=== PATIENT | female | born 1995 | race Caucasian/White ===

== ENCOUNTER 2018-04-22 14:19 | Observation (INO) | payer OTHER ==
[2018-04-22 14:54] LABS: HCG,QUALITATIVE URINE Negative
[2018-04-22 15:05] LABS: URINE APPEARANCE CLOUDY; URINE BILIRUBIN NEGATIVE (<2.0 mg/dL); URINE COLOR YELLOW; URINE GLUCOSE (UA) 2+ (NEGATIVE); URINE KETONE NEGATIVE (NEGATIVE); URINE LEUK ESTERASE TRACE (NEGATIVE); URINE NITRITE POSITIVE (NEGATIVE); URINE PROTEIN 2+ (NEGATIVE); URINE UROBILINOGEN NEGATIVE mg/dL (0.2-1.0)
[2018-04-22 15:16] LABS: CALCIUM OXALATE CRYSTALS RARE /hpf (NONE SEEN); EPI CELLS MANY /HPF (FEW); URINE BACTERIA MODERATE /hpf (NONE SEEN); URINE MUCUS MANY
[2018-04-22] MEDS ORDERED: KETOROLAC TROMETHAMINE 30 MG/1 ML VIAL IVPUSH ONE (15:22)
[2018-04-22] MEDS ORDERED: KETOROLAC TROMETHAMINE 30 MG/1 ML VIAL ONE (15:23)
--- NOTE | 2018-04-22 15:29 | PDOC ---
History of Present Illness - General History Source: Patient Exam Limitations: Clinical Condition - History of Present Illness Initial Comments: 04/22/18 15:24 Patient with no sig past medical history present with complain of three-day history of intermittent throbbing left flank pain radiating to the mid back which improves with Tylenol and comes back again. Patient reported pain lasted a few minutes and resolve. Patient also report urinary frequency and dysuria. Patient was seen in urgent care and was told she might have a kidney stone given her symptoms. Patient was given Toradol 60 mg IM in the urgent care and report pain has improved but still has mild left flank pain. Patient also report nausea but no vomiting. Denies fever, chills or any other symptoms Timing/Duration: other (3 days) <Jan Lawson - Last Filed: 04/22/18 18:41> <Bridgett Almaguer - Last Filed: 04/22/18 18:47> - General Chief Complaint: Pain, Acute Stated Complaint: PAIN Time Seen by Provider: 04/22/18 14:54 Past History - Past Medical History Asthma: Yes COPD: No Diabetes: Yes (supposed to be on metformin) - Suicide/Smoking/Psychosocial Hx Smoking Status: No Smoking History: Never smoked Number of Cigarettes Smoked Daily: 0 Substance Use Type: None <Jan Lawson - Last Filed: 04/22/18 18:41> <Bridgett Almaguer - Last Filed: 04/22/18 18:47> - Past Medical History Allergies/Adverse Reactions: Allergies Allergy/AdvReac Type Severity Reaction Status Date / Time No Known Allergies Allergy Verified 04/22/18 14:25 Home Medications: Ambulatory Orders NK [No Known Home Medication] 04/22/18 Review of Systems - Review of Systems Able to Perform ROS?: Yes Is the patient limited Malay proficient: No Constitutional: No: Chills, Fever Respiratory: No: Symptoms reported Cardiac (ROS): No: Symptoms Reported ABD/GI: Yes: See HPI, Nausea, Abdominal cramping (left flank). No: Abdominal Distended, Abd. Pain w/ defecation, Constipated, Diarrhea, Rectal Bleeding, Vomiting : Yes: Frequency, Flank Pain (intermittent left), Hematuria. No: Burning, Discharge, Urgency All Other Systems: Reviewed and Negative <Jan Lawson - Last Filed: 04/22/18 18:41> *Physical Exam - Vital Signs Last Vital Signs Temp Pulse Resp BP Pulse Ox 98.1 F 90 18 128/69 98 04/22/18 14:30 04/22/18 14:30 04/22/18 14:30 04/22/18 14:30 04/22/18 14:30 - Physical Exam Comments: 04/22/18 15:26 GENERAL: Well developed, well nourished. Awake and alert. No acute distress. CARDIOVASCULAR: Regular rate and rhythm. No murmurs, rubs, or gallops. Distal pulses are 2+ and symmetric. PULMONARY: No evidence of respiratory distress. Lungs clear to auscultation bilaterally. No wheezing, rales or rhonchi. ABDOMINAL: Soft. Non-tender. Non-distended. No rebound or guarding. No organomegaly. Normoactive bowel sounds. MUSCULOSKELETAL Normal range of motion at all joints. No bony deformities or tenderness. No CVA tenderness. SKIN: Warm and dry. Normal capillary refill. No rashes. No jaundice. NEUROLOGICAL: Alert, awake, appropriate. PSYCHIATRIC: Cooperative. Good eye contact. Appropriate mood and affect. General Appearance: Yes: Nourished, Appropriately Dressed. No: Apparent Distress <Jan Lawson - Last Filed: 04/22/18 18:41> - Vital Signs Last Vital Signs Temp Pulse Resp BP Pulse Ox 98.1 F 90 18 128/69 98 04/22/18 14:30 04/22/18 14:30 04/22/18 14:30 04/22/18 14:30 04/22/18 14:30 <Bridgett Almaguer - Last Filed: 04/22/18 18:47> ED Treatment Course - LABORATORY CBC & Chemistry Diagram: 04/22/18 15:05 04/22/18 15:05 - ADDITIONAL ORDERS Additional order review: Laboratory Results 04/22/18 14:38 Urine Color Yellow Urine Appearance Cloudy Urine pH 5.0 Ur Specific [place] 1.029 Urine Protein 2+ H Urine Glucose (UA) 2+ H Urine Ketones Negative Urine Blood 1+ H Urine Nitrite Positive Urine Bilirubin Negative Urine Urobilinogen Negative Ur Leukocyte Esterase Trace Urine WBC (Auto) 23 Urine RBC (Auto) 6 Ur Epithelial Cells Many Calcium Oxalate Crystal Rare Urine Bacteria Moderate Urine Mucus Many Urine HCG, Qual Negative - RADIOLOGY Radiology Studies Ordered: Category Date Time Status KIDNEY / RENAL US [US] Stat Ultrasound 04/22/18 15:16 Ordered <aJn Lawson - Last Filed: 04/22/18 18:41> - LABORATORY CBC & Chemistry Diagram: 04/22/18 15:05 04/22/18 15:05 - ADDITIONAL ORDERS Additional order review: Laboratory Results 04/22/18 14:38 Urine Color Yellow Urine Appearance Cloudy Urine pH 5.0 Ur Specific [place] 1.029 Urine Protein 2+ H Urine Glucose (UA) 2+ H Urine Ketones Negative Urine Blood 1+ H Urine Nitrite Positive Urine Bilirubin Negative Urine Urobilinogen Negative Ur Leukocyte Esterase Trace Urine WBC (Auto) 23 Urine RBC (Auto) 6 Ur Epithelial Cells Many Calcium Oxalate Crystal Rare Urine Bacteria Moderate Urine Mucus Many Urine HCG, Qual Negative - Medications Given in the ED: ED Medications Discontinued Medications Generic Name Dose Route Start Last Admin Trade Name Freq PRN Reason Stop Dose Admin Ketorolac Tromethamine 30 mg 04/22/18 15:22 04/22/18 15:29 Toradol Injection - IVPUSH 04/22/18 15:23 30 mg ONCE ONE Administration <Bridgett Almaguer - Last Filed: 04/22/18 18:47> Medical Decision Making - Medical Decision Making 04/22/18 15:27 Patient with no sig past medical history present with complain of intermittent left flank pain which comes and lasts for a few minutes for 3 days which has been worsening today. Exams show no flank pain now. UA shows leukocytosis and hematuria. Urine culture pending. CBC, CMP and kidney ultrasound ordered. Treat based on lab and imaging results 04/22/18 18:18 UA shows leukocytosis WBC shows elevated count of 13. pt afebrile. Keflex 500mg PO given. kidney Ultrasound shows left small non-obstructing renal stone with mild hydronephrosis. CT of bladder shows small non-obstructing 2mm calculus at UPJ. spoke to urologist Dr. Biswas who agrees patient to be admitted for at last 24hours IV Ibx. discussed with patient need for hospital admission for IV Abx and pt agrees with plan 04/22/18 18:41 Patient admitted to hospitalist service under Dr. Sharp <Jan Lawson - Last Filed: 04/22/18 18:41> - Medical Decision Making The patient was seen and evaluated in conjunction with midlevel provider under my direct supervision, ancillary studies were reviewed. I agree with the plan as outlined by BETHANIE Lawson 23 YOF with urinary sx and left flank pain. vitals wnl, no fever. UA with nitrites and s/s infection, treat with keflex, UTI vs pyelo. neg preg test. labs and lytes remarkable for leukocytosis of 13K. Cr and lytes normal. renal sono with left hydro CT kelsy to r/o exact location of obstruction and stone. +hydro noted, left 2cm UPJ stone noted. could also be infected stone already gotten dose of keflex. hydrated, analgesia urology cs with Dr. Sanabria admit for infected stone at UPJ, likely to pass also possible concurrent UTI. admit to hospitalist team 04/22/18 15:32 04/22/18 18:45 04/22/18 18:46 <Bridgett Almaguer - Last Filed: 04/22/18 18:47> *DC/Admit/Observation/Transfer - Discharge Dispostion Decision to Admit order: Yes Decision to Admit order Date/Time: 04/22/18 18:23 Patient with poorly controlled diabetes. WBC shows elevated white count. Pelvic ultrasound shows renal stone with mild hydronephrosis. Discussed case with urologist Dr. Sanabria who agrees patient to be admitted for IV antibiotics. Hospitalist contacted for admission. <Jan Lawson - Last Filed: 04/22/18 18:41> - Discharge Dispostion Decision to Admit order: Yes <Bridgett Almaguer - Last Filed: 04/22/18 18:47> Diagnosis at time of Disposition: Hydronephrosis of left kidney, Poorly controlled diabetes mellitus, Ureteropelvic junction calculus UTI (urinary tract infection) Qualifiers: Urinary tract infection type: acute cystitis Hematuria presence: with hematuria Qualified Code(s): N30.01 - Acute cystitis with hematuria - Discharge Dispostion Condition at time of disposition: Stable - Referrals Referrals: ON STAFF,NOT [Primary Care Provider] - - Patient Instructions - Post Discharge Activity
[2018-04-22] MEDS ORDERED: CEPHALEXIN MONOHYDRATE 500 MG CAPSULE (UD) PO ONE (15:33)
[2018-04-22 15:36] LABS: BASO % 0.2 % (0-2.0); EOS % 0.2 % (0-4.5); HEMATOCRIT 42.1 % (32.4-45.2); HEMOGLOBIN 14.4 GM/dL (10.7-15.3); MCH 29.1 pg (25.7-33.7); MCHC 34.2 g/dl (32.0-36.0); MONO % 4.1 % (3.8-10.2); NEUT % 85.5 % (42.8-82.8); PLATELET COUNT 311 K/MM3 (134-434); RBC 4.96 M/mm3 (3.60-5.2); RDW 12.9 % (11.6-15.6); WHITE BLOOD COUNT 13.1 K/mm3 (4.0-10.0)
[2018-04-22] MEDS ORDERED: CEPHALEXIN MONOHYDRATE 500 MG CAPSULE (UD) ONE (15:41)
[2018-04-22 16:06] LABS: ALK PHOS 112 U/L (45-117); ANION GAP 12 MMOL/L (8-16); BILIRUBIN,TOTAL 0.5 mg/dL (0.2-1); BLOOD UREA NITROGEN 10 mg/dL (7-18); CALCIUM 8.9 mg/dL (8.5-10.1); CHLORIDE 105 mmol/L (98-107); CO2 24 mmol/L (21-32); CREATININE 0.6 mg/dL (0.55-1.3); GLUCOSE,RANDOM 248 mg/dL (74-106); POTASSIUM 3.8 mmol/L (3.5-5.1); SGOT/AST 20 U/L (15-37); SGPT/ALT 53 U/L (13-61); SODIUM 140 mmol/L (136-145); TOT PROT 7.3 g/dl (6.4-8.2)
[2018-04-22] MEDS ORDERED: metFORMIN HCL 500 MG TABLET (FP) PO ONE (17:23)
[2018-04-22] MEDS ORDERED: metFORMIN HCL 500 MG TABLET (FP) ONE (17:50)
[2018-04-22] MEDS ORDERED: KETOROLAC TROMETHAMINE 15 MG/ML VIAL IVPUSH PRN (18:35)
[2018-04-22] MEDS: SODIUM CHLORIDE 1,000 ML IV SCH (18:50)
--- NOTE | 2018-04-22 20:18 | HP ---
CHIEF COMPLAINT: "kidney stone pain" PCP: none HISTORY OF PRESENT ILLNESS: Pt is a 23 y/o F with PMH DM (started as gestational) who presented to ED with complaint of 3 d L back pain radiating to the L side and front of abdomen. Pain has been intermittent and severe when present. Pt states she went to Urgent care where she had a urinalysis done, which revealed blood and a UTI. She was sent to ED. Denies pain at this time. Denies fever, chills, nausea, vomiting, diarrhea. ER course was notable for: (1) vitals stable, WBC 13, UA contaminated (2) renal u/s & abd CT reveal nonobstructing stone with hydro (3) Recent Travel: denies PAST MEDICAL HISTORY: as above PAST SURGICAL HISTORY: Social History: Smoking: denies Alcohol: denies Drugs: denies Family History: Allergies No Known Allergies Allergy (Verified 04/22/18 14:25) HOME MEDICATIONS: Home Medications Medication Instructions Recorded NK [No Known Home Medication] 04/22/18 REVIEW OF SYSTEMS CONSTITUTIONAL: Absent: fever, chills, diaphoresis, generalized weakness, malaise, loss of appetite, weight change HEENT: Absent: rhinorrhea, nasal congestion, throat pain, throat swelling, difficulty swallowing, mouth swelling, ear pain, eye pain, visual changes CARDIOVASCULAR: Absent: chest pain, syncope, palpitations, irregular heart rate, lightheadedness , peripheral edema RESPIRATORY: Absent: cough, shortness of breath, dyspnea with exertion, orthopnea, wheezing, stridor, hemoptysis GASTROINTESTINAL: abdominal pain Absent: , abdominal distension, nausea, vomiting, diarrhea, constipation, melena , hematochezia GENITOURINARY: Absent: dysuria, frequency, urgency, hesitancy, hematuria, flank pain, genital pain MUSCULOSKELETAL: Absent: myalgia, arthralgia, joint swelling, back pain, neck pain SKIN: Absent: rash, itching, pallor HEMATOLOGIC/IMMUNOLOGIC: Absent: easy bleeding, easy bruising, lymphadenopathy, frequent infections ENDOCRINE: Absent: unexplained weight gain, unexplained weight loss, heat intolerance, cold intolerance NEUROLOGIC: Absent: headache, focal weakness or paresthesias, dizziness, unsteady gait, seizure, mental status changes, bladder or bowel incontinence PSYCHIATRIC: Absent: anxiety, depression, suicidal or homicidal ideation, hallucinations. PHYSICAL EXAMINATION Vital Signs - 24 hr 04/22/18 04/22/18 04/22/18 14:30 19:15 19:34 Temperature 98.1 F Pulse Rate 90 Pulse Rate [ 86 Apical] Respiratory 18 18 Rate Blood Pressure 128/69 Blood Pressure 128/76 [Left Arm] O2 Sat by Pulse 98 98 98 Oximetry (%) Gen: nad HEENT: NCAT, EOMI Neck: supple, no jvd Cardio: rrr, normal s1s2, no mrg Pulm: cta b/l Abd: nondistended, nontender Laboratory Results - last 24 hr 04/22/18 04/22/18 04/22/18 14:38 15:05 15:05 WBC 13.1 H RBC 4.96 Hgb 14.4 Hct 42.1 MCV 85.0 MCH 29.1 MCHC 34.2 RDW 12.9 Plt Count 311 MPV 8.0 Absolute Neuts (auto) 11.2 H Neutrophils % 85.5 H Lymphocytes % 10.0 Monocytes % 4.1 Eosinophils % 0.2 Basophils % 0.2 Nucleated RBC % 0 Sodium 140 Potassium 3.8 Chloride 105 Carbon Dioxide 24 Anion Gap 12 BUN 10 Creatinine 0.6 Creat Clearance w eGFR > 60 Random Glucose 248 H Calcium 8.9 Total Bilirubin 0.5 AST 20 ALT 53 Alkaline Phosphatase 112 Total Protein 7.3 Albumin 4.0 Urine Color Yellow Urine Appearance Cloudy Urine pH 5.0 Ur Specific [place] 1.029 Urine Protein 2+ H Urine Glucose (UA) 2+ H Urine Ketones Negative Urine Blood 1+ H Urine Nitrite Positive Urine Bilirubin Negative Urine Urobilinogen Negative Ur Leukocyte Esterase Trace Urine WBC (Auto) 23 Urine RBC (Auto) 6 Ur Epithelial Cells Many Calcium Oxalate Crystal Rare Urine Bacteria Moderate Urine Mucus Many Urine HCG, Qual Negative ASSESSMENT/PLAN: Pt is a 23 y/o F with PMH gest DM, who presented to ED with abdominal pain from Urgent care where she was told she had a kidney stone. Pt found to have stone on imaging. #Renal stone -small amount of hydro -no pain at this time -PRN morphine -flomax 0.4 -NS @ 100 -Uro consulted and contacted by ED #DM -BGM ACHS -Hold metformin in case of possible imaging -ISS #FEN -NS -lytes wnl -DM diet #PPx -HSQ #Dispo -Obs Papa Tripp MD PGY-2 IM Visit type - Emergency Visit Emergency Visit: Yes ED Registration Date: 04/22/18 Care time: The patient presented to the Emergency Department on the above date and was hospitalized for further evaluation of their emergent condition. - New Patient This patient is new to me today: Yes Date on this admission: 04/23/18 - Critical Care Critical Care patient: No
[2018-04-22] MEDS: HEPARIN NA (PORCINE) 5,000 UNITS/ML 1ML VIAL SQ SCH (21:28)
[2018-04-22] MEDS: KETOROLAC TROMETHAMINE 15 MG/ML VIAL IVPUSH PRN (21:28)
[2018-04-22 23:28] VITALS: BMI 35.4
--- NOTE | 2018-04-23 01:58 | PN ---
Teaching Attending Note Name of Resident: Papa Tripp ATTENDING PHYSICIAN STATEMENT I saw and evaluated the patient. I reviewed the resident's note and discussed the case with the resident. I agree with the resident's findings and plan as documented. SUBJECTIVE: OBJECTIVE: ASSESSMENT AND PLAN: 23 y/o F with PMH gest DM, for a non-obstructive kidney stone #Renal stone -small amount of hydro -PRN morphine -tamsulosin 0.4mg -NS @ 100 f/u urology #DM -BGM ACHS -Hold metformin in case of possible imaging -ISS
[2018-04-23 04:13] LABS: URINE APPEARANCE CLEAR; URINE BILIRUBIN NEGATIVE (<2.0 mg/dL); URINE COLOR LTYELLOW; URINE GLUCOSE (UA) 3+ (NEGATIVE); URINE KETONE NEGATIVE (NEGATIVE); URINE LEUK ESTERASE NEGATIVE (NEGATIVE); URINE NITRITE NEGATIVE (NEGATIVE); URINE PROTEIN NEGATIVE (NEGATIVE); URINE UROBILINOGEN NEGATIVE mg/dL (0.2-1.0)
[2018-04-23] MEDS: HEPARIN NA (PORCINE) 5,000 UNITS/ML 1ML VIAL SQ SCH ×3 (06:16→21:00)
[2018-04-23] MEDS: SODIUM CHLORIDE 1,000 ML IV SCH ×2 (06:16→17:51)
[2018-04-23] MEDS: INSULIN SLIDING SCALE (NOVOLOG) 1 VIAL SQ SCH ×3 (06:50→17:50)
[2018-04-23 07:55] LABS: BASO % 0.3 % (0-2.0); EOS % 1.2 % (0-4.5); HEMATOCRIT 39.1 % (32.4-45.2); HEMOGLOBIN 13.6 GM/dL (10.7-15.3); LYMPH % 25.1 % (8-40); MCH 29.7 pg (25.7-33.7); MCHC 34.8 g/dl (32.0-36.0); MEAN CELL VOLUME 85.2 fl (80-96); MEAN PLT VOLUME 8.1 fl (7.5-11.1); MONO % 4.8 % (3.8-10.2); NEUT % 68.6 % (42.8-82.8); PLATELET COUNT 307 K/MM3 (134-434); RBC 4.58 M/mm3 (3.60-5.2); RDW 13.3 % (11.6-15.6); WHITE BLOOD COUNT 9.6 K/mm3 (4.0-10.0)
[2018-04-23 08:36] LABS: ANION GAP 8 MMOL/L (8-16); BLOOD UREA NITROGEN 13 mg/dL (7-18); CALCIUM 8.8 mg/dL (8.5-10.1); CHLORIDE 107 mmol/L (98-107); CO2 23 mmol/L (21-32); CREATININE 0.3 mg/dL (0.55-1.3); GLUCOSE,RANDOM 234 mg/dL (74-106); POTASSIUM 3.6 mmol/L (3.5-5.1); SODIUM 139 mmol/L (136-145)
[2018-04-23] MEDS: KETOROLAC TROMETHAMINE 15 MG/ML VIAL IVPUSH PRN (10:01)
--- NOTE | 2018-04-23 15:12 | PN ---
Progress Note (short form) - Note Progress Note: Subjective: received toradole earlier. no fever or chills . pain is better and resolved . no hematuria. denies dyuria. denies being on any meds for Dm and has poor f/u with PCP Objective: Vital Signs: Last Vital Signs Temp Pulse Resp BP Pulse Ox 98.4 F 84 20 126/69 98 04/23/18 13:15 04/23/18 13:15 04/23/18 13:15 04/23/18 13:15 04/23/18 11:00 Laboratory Results - last 24 hr 04/22/18 04/23/18 04/23/18 21:01 03:55 06:15 WBC RBC Hgb Hct MCV MCH MCHC RDW Plt Count MPV Absolute Neuts (auto) Neutrophils % Lymphocytes % Monocytes % Eosinophils % Basophils % Nucleated RBC % Sodium Potassium Chloride Carbon Dioxide Anion Gap BUN Creatinine Creat Clearance w eGFR POC Glucometer 190 215 Random Glucose Calcium Urine Color Ltyellow Urine Appearance Clear Urine pH 6.0 Ur Specific [place] 1.022 Urine Protein Negative Urine Glucose (UA) 3+ H Urine Ketones Negative Urine Blood Negative Urine Nitrite Negative Urine Bilirubin Negative Urine Urobilinogen Negative Ur Leukocyte Esterase Negative 04/23/18 04/23/18 04/23/18 07:00 07:00 11:49 WBC 9.6 RBC 4.58 Hgb 13.6 Hct 39.1 MCV 85.2 MCH 29.7 MCHC 34.8 RDW 13.3 Plt Count 307 MPV 8.1 Absolute Neuts (auto) 6.6 Neutrophils % 68.6 Lymphocytes % 25.1 D Monocytes % 4.8 Eosinophils % 1.2 D Basophils % 0.3 Nucleated RBC % 0 Sodium 139 Potassium 3.6 Chloride 107 Carbon Dioxide 23 Anion Gap 8 BUN 13 Creatinine 0.3 L Creat Clearance w eGFR > 60 POC Glucometer 211 Random Glucose 234 H Calcium 8.8 Urine Color Urine Appearance Urine pH Ur Specific [place] Urine Protein Urine Glucose (UA) Urine Ketones Urine Blood Urine Nitrite Urine Bilirubin Urine Urobilinogen Ur Leukocyte Esterase Physical Exam: NAD CV: RRR Lungs: CTAB Abd: soft, NT, ND, NLBS , obese . mild L CVA tenderness ext: no edema Assessment/Plan: 23 y/o lady with h/o Dm , and non compliant with PMD who presented with L sided flank pain and was found to have partially obstructing L sided stone with hydro 1- L sided partially obstructing nephrolithiasis and mild hydro: Ct reviewed - IVF - toradol - strain all urine - uro eval pending - no evidence of UTI. no need for Abx 2- H/o Dm : self stopped metformin few months ago. - ssi - f/u as out pt - educated about DM complications 3- L hepatic lobe structure on CT scan. f/u as out pt with triphase CT or MRI Visit type - Emergency Visit Emergency Visit: Yes ED Registration Date: 04/22/18 Care time: The patient presented to the Emergency Department on the above date and was hospitalized for further evaluation of their emergent condition. - New Patient This patient is new to me today: No - Critical Care Critical Care patient: No
--- NOTE | 2018-04-23 17:58 | CON.GU ---
Consult - History of Present Illness History of Present Illness: 23 yo female with left renal colic secondary to a 2mm Left UPJ stone - Past Medical History ...: No - Smoking History Smoking history: Never smoked Aproximately how many cigarettes per day: 0 Home Medications - Allergies Allergies/Adverse Reactions: Allergies Allergy/AdvReac Type Severity Reaction Status Date / Time No Known Allergies Allergy Verified 04/22/18 14:25 - Home Medications Home Medications: Ambulatory Orders NK [No Known Home Medication] 04/22/18 Review of Systems - Review of Systems Genitourinary: reports: Flank Pain Physical Exam- Vital Signs: Vital Signs Temperature 98.7 F 04/23/18 17:14 Pulse Rate 82 04/23/18 17:14 Respiratory Rate 18 04/23/18 17:14 Blood Pressure 124/83 04/23/18 17:14 O2 Sat by Pulse Oximetry (%) 98 04/23/18 11:00 Renal/: Yes: WNL Labs: CBC, BMP 04/23/18 07:00 04/23/18 07:00 Imaging - Results Cat Scan: Report Reviewed Problem List - Problems (1) Ureteropelvic junction calculus Assessment/Plan: in light of small stone size recommend conservative management with IVF hydration, antibiotics, await urine culture Code(s): N20.0 - CALCULUS OF KIDNEY
[2018-04-23] MEDS ORDERED: INSULIN (NOVOLOG) ASPART 100 UNITS/ML 10ML VIAL ONE (18:17)
[2018-04-23] MEDS ORDERED: ACETAMINOPHEN 325 MG TABLET (FP) PO ONE (22:33)
[2018-04-24] MEDS: SODIUM CHLORIDE 1,000 ML IV SCH ×2 (02:37→13:00)
[2018-04-24] MEDS: INSULIN SLIDING SCALE (NOVOLOG) 1 VIAL SQ SCH ×3 (06:09→16:17)
[2018-04-24] MEDS: HEPARIN NA (PORCINE) 5,000 UNITS/ML 1ML VIAL SQ SCH ×2 (06:09→15:31)
[2018-04-24] MEDS ORDERED: cefTRIAXone SODIUM 1 GM VIAL ONE (08:30)
[2018-04-24] MEDS ORDERED: DEXTROSE 5%-WATER - 50 ML IVPB ONE (08:30)
[2018-04-24 09:31] LABS: ANION GAP 6 MMOL/L (8-16); BLOOD UREA NITROGEN 8 mg/dL (7-18); CALCIUM 8.6 mg/dL (8.5-10.1); CHLORIDE 105 mmol/L (98-107); CO2 27 mmol/L (21-32); CREATININE 0.4 mg/dL (0.55-1.3); GLUCOSE,RANDOM 253 mg/dL (74-106); SODIUM 138 mmol/L (136-145)
[2018-04-24] MEDS ORDERED: CEFTRIAXONE 1 GM in DEXTROSE 5%-WATER - 50 ML IVPB SCH (10:00)
--- NOTE | 2018-04-24 11:57 | EKG ---
Test Reason : Blood Pressure : / mmHG Vent. Rate : 073 BPM Atrial Rate : 073 BPM P-R Int : 134 ms QRS Dur : 082 ms QT Int : 370 ms P-R-T Axes : 024 043 028 degrees QTc Int : 407 ms NORMAL SINUS RHYTHM WITH SINUS ARRHYTHMIA NORMAL ECG NO PREVIOUS ECGS AVAILABLE Confirmed by PRABHJOT DOMÍNGUEZ MD ([id number]) on 04/24/2018 11:56:39 AM Referred By: MERVIN PHAM Confirmed By:PRABHJOT DOMÍNGUEZ MD
[2018-04-24 13:26] VITALS: BP 109/59; PULSE 88; TEMP 98.1
--- NOTE | 2018-04-24 15:59 | PN ---
Teaching Attending Note Name of Resident: Kris Payne ATTENDING PHYSICIAN STATEMENT I saw and evaluated the patient. I reviewed the resident's note and discussed the case with the resident. I agree with the resident's findings and plan as documented. SUBJECTIVE: No fever or chills. no abd pain, no hematuria . feels much better . OBJECTIVE: NAD CV: RRR Lungs: CTAB Abd: soft, NT, ND, NLBS , obese . No CVA tenderness ext: no edema Assessment/Plan: 23 y/o lady with h/o Dm , and non compliant with PMD who presented with L sided flank pain and was found to have partially obstructing L sided stone with hydro 1- L sided partially obstructing nephrolithiasis and mild hydro: pain resolved . Urine cx with low colony count. No UTI no stone seen with straining the urine. dc IVF. f/u with urology as out pt patient instructed verbally to stain all her urine at home 2- H/o Dm : self stopped metformin few months ago. - educated. started on metformin, and asked to check blood sugar 3- L hepatic lobe structure on CT scan. f/u as out pt with triphase CT or MRI dc home
--- NOTE | 2018-04-24 18:31 | DS ---
Physical Exam: SUBJECTIVE: Patient seen and examined. No acute events overnight. Pt. denies fever, abdominal pain, dysuria or hematuria. OBJECTIVE: Vital Signs Period Temp Pulse Resp BP Sys/Chaudhari Pulse Ox Last 24 Hr 98.0 F-98.9 F 67-88 18-20 105-129/58-76 98-98 PHYSICAL EXAM GENERAL: The patient is awake, alert, and fully oriented, in no acute distress. EYES: sclera anicteric, conjunctiva clear. ENT: Ears normal, nares patent, moist mucous membranes. LUNGS: Breath sounds equal, clear to auscultation bilaterally, no wheezes, no crackles, no accessory muscle use. No CVA tenderness. HEART: Regular rate and rhythm, S1, S2 without murmur ABDOMEN: Soft, nontender, nondistended, normoactive bowel sounds, no guarding, no rebound EXTREMITIES: 2+ pulses, warm, well-perfused, no edema. NEUROLOGICAL: Normal speech, gait not observed. PSYCH: Normal mood, normal affect. SKIN: Warm, dry, normal turgor LABS Laboratory Results - last 24 hr 04/23/18 04/24/18 04/24/18 20:57 06:08 08:45 Sodium 138 Potassium 4.0 Chloride 105 Carbon Dioxide 27 Anion Gap 6 L BUN 8 Creatinine 0.4 L Creat Clearance w eGFR > 60 POC Glucometer 214 231 Random Glucose 253 H Calcium 8.6 TSH 1.25 04/24/18 12:31 Sodium Potassium Chloride Carbon Dioxide Anion Gap BUN Creatinine Creat Clearance w eGFR POC Glucometer 190 Random Glucose Calcium TSH HOSPITAL COURSE: Date of Admission:04/22/18 Date of Discharge: 04/24/18 Pt. admitted for flank pain 2/2 to UTI with non-obstructing hydronephrosis found on CT scan. Pt. treated with IVF and pain management. Abx. not indicated. Urology consult appreciated. Pt. found to have uncontrolled diabetes. Pt. referred to to clinic, restarted on Metformin, and prescribed glucometer as mentioned below. Hospital course discussed and agreed upon with Pt. and hospital staff. Minutes to complete discharge: 32 Discharge Summary Reason For Visit: URINARY TRACT INFECTION, POORLY CONTROLLED Condition: Improved - Instructions Diet, Activity, Other Instructions: You were admitted for abdominal pain. You were found to have a small stone in your ureter causing the pain and some dilation in your L kidney . You were found to have an elevated blood sugar, consistent with diabetes. We have started you on Metformin 1,000mg extended release once daily Please take 1 pill every day at the same time. We have prescribed a Glucometer (machine that measures blood sugar). Please measure your blood sugar every day before meals. Once in the Morning. once at noon and once at night. Please record your blood sugars and bring them to your Primary Care Physician to see if your medication needs to be adjusted. Please follow up with your Primary Care Physician within 1 week for your Diabetes management. If you do not have a Primary Care Physician please make an appointment with [facility] [phone] Please follow up with urologist Dr Biswas in 2 weeks if you develop sever pain or noticed any blood in urine Please follow up with cardiology as out patient for the palpitation . you might need a prolonged cardiac monitoring Please take your medications as prescribed to prevent foot amputation, kidney failure, progressive heart disease and early . Please return to the ER if you experience increase fever, chills, abdominal pain , decreased urination, pain on urination or increased frequency of urination. you have a liver nodule. please follow with your doctor fro repeat imaging and work up for this lesion . loose weight please Referrals: Haley Singh MD [Staff Physician] - 2 Weeks Jose A Biswas MD [Staff Physician] - 2 Weeks ON STAFF,NOT [Primary Care Provider] - 1 Week Disposition: HOME - Home Medications Comprehensive Discharge Medication List: Ambulatory Orders Acetaminophen [Tylenol .Extra-Strength -] 1,000 mg PO Q8H #100 tablet 02/01/15 Vit No.130/Iron/Folic [ Tablet] 1 each PO DAILY 02/01/15 Metformin HCl [Metformin HCl ER] 1,000 mg PO DAILY #30 tab.er.24 04/24/18 Miscellaneous Medical Supply [Glucometer Device] 1 each TP ASDIR #1 kit Miscellaneous Medical Supply [Glucometer Test Strips #100] 1 each TP ASDIR #1 box 04/24/18 This patient is new to me today: Yes Date on this admission: 04/24/18 Emergency Visit: Yes ED Registration Date: 04/22/18 Care time: The patient presented to the Emergency Department on the above date and was hospitalized for further evaluation of their emergent condition. Critical Care patient: No - Discharge Referral Referred to [facility] No
== END 2018-04-24 16:18 | disposition home or self-care (01) ==
LOC: JER 14:19 → JERBED 18:25 → J7W 20:41
PROVIDERS: ADMIT Internal Medicine; ATTEND Internal Medicine
PROC: 3E03329 Introduction of Other Anti-infective into Peripheral Vein, Percutaneous Approach (ICD-10-PCS; principal; 2018-04-22)
PROC: 3E0333Z Introduction of Anti-inflammatory into Peripheral Vein, Percutaneous Approach (ICD-10-PCS; 2018-04-22)
PROC: 3E0337Z Introduction of Electrolytic and Water Balance Substance into Peripheral Vein, Percutaneous Approach (ICD-10-PCS; 2018-04-22)
PROC: 3E013VG Introduction of Insulin into Subcutaneous Tissue, Percutaneous Approach (ICD-10-PCS; 2018-04-22)
DX: N13.2 Hydronephrosis with renal and ureteral calculous obstruction (principal); E11.65 Type 2 diabetes mellitus with hyperglycemia; N30.01 Acute cystitis with hematuria; Z79.84 Long term (current) use of oral hypoglycemic drugs
CPT/HCPCS: 36415; 74176; 76775-TC; 80048; 80053; 81003; 81015; 82962; 84443; 84703; 85025; 87086; 93005; 93010; 96372; 96374; 96375; 96376; 99284-25; G0378; J1644; J7030

== ENCOUNTER 2018-06-28 21:35 | Emergency (ER) | payer OTHER ==
[2018-06-28] MEDS ORDERED: SODIUM CHLORIDE 1,000 ML IV STA (21:40)
--- NOTE | 2018-06-28 21:40 | PDOC ---
Rapid Medical Evaluation Time Seen by Provider: 06/28/18 21:36 Medical Evaluation: Allergies Allergy/AdvReac Type Severity Reaction Status Date / Time No Known Allergies Allergy Verified 04/22/18 14:25 06/28/18 21:38 I have performed a brief in-person evaluation of this patient. The patient presents with a chief complaint of: r pelvic pain which has now moved to umbilicus. also with black stools Pertinent physical exam findings: No CVAT. RLQ tenderness. I have ordered the following: labs, urine, CTAB The patient will proceed to the ED for further evaluation. Discharge Disposition - Diagnosis Abdominal pain - Referrals - Patient Instructions - Post Discharge Activity
[2018-06-28 21:51] VITALS: BMI 37.3
--- NOTE | 2018-06-28 22:45 | PDOC ---
History of Present Illness - General Chief Complaint: Pain, Acute Stated Complaint: PAIN, ACUTE Time Seen by Provider: 06/28/18 21:36 - History of Present Illness Initial Comments: 23yo F with PMH of diabetes (non-adherent with metformin) and HELLP syndrome presenting with abdominal pain. Patient states the pain felt similar to when had a kidney stone on her left side, but now the pain presents on the right. The patient describes feeling a pinching sensation in her inguinal area which she has had before and attributes to her IUD. Thereafter, she felt a sharp pain in her periumbilical area and RLQ that lasted for about twenty minutes. No nausea or vomiting. She reports that her last bowel movement was nonbloody, but was black. Patient endorses a normal appetite. History of two c-sections. Reports normal appetite today. No fevers, chills, chest pain, or shortness of breath. Past History - Past Medical History Allergies/Adverse Reactions: Allergies Allergy/AdvReac Type Severity Reaction Status Date / Time No Known Allergies Allergy Verified 06/28/18 21:50 Home Medications: Ambulatory Orders NK [No Known Home Medication] 06/28/18 Asthma: Yes COPD: No Diabetes: Yes (supposed to be on metformin) Kidney Stones: Yes - Family Disease History Family Disease History: Diabetes: Mother - Reproductive History (#): 1 Para: 0 - Suicide/Smoking/Psychosocial Hx Smoking Status: No Smoking History: Never smoked Have you smoked in the past 12 months: No Number of Cigarettes Smoked Daily: 0 Information on smoking cessation initiated: No Hx Alcohol Use: No Drug/Substance Use Hx: No Substance Use Type: None Review of Systems - Review of Systems Comments:: Constitutional: no fever, no chills HEENT: no throat pain, no dysphagia Cardiovascular: no chest pain, no palpitations Respiratory: no cough, no shortness of breath Gastrointestinal: +abdominal pain, no nausea, no vomiting Genitourinary: no dysuria, no frequency Musculoskeletal: no myalgia, no arthralgia Skin: no rash, no itching Neurologic: no headache, no dizziness *Physical Exam - Vital Signs Last Vital Signs Temp Pulse Resp BP Pulse Ox 98.6 F 111 H 16 136/82 100 06/28/18 21:46 06/28/18 21:46 06/28/18 21:46 06/28/18 21:46 06/28/18 21:46 - Physical Exam Comments: General: Awake, alert, and fully oriented, in no acute distress Head: No signs of trauma Eyes: EOMI, sclera anicteric ENT: Moist mucus membranes Neck: Normal ROM, supple Lungs: Lungs clear, Normal breath sounds Cardio: Regular rhythm, S1 and S2 present Abdomen: Slightly tender to palpation right of periumbilical area; Soft, nondistended. No guarding, no rebound, no masses Extremities: Normal range of motion, Distal pulses present SKIN: Warm, Dry, normal turgor Neurologic: Cranial nerves II through XII grossly intact. Normal speech Moderate Sedation - Procedure Monitoring Vital Signs: Procedure Monitoring Vital Signs Temperature 98.6 F 06/28/18 21:46 Pulse Rate 111 H 06/28/18 21:46 Respiratory Rate 16 06/28/18 21:46 Blood Pressure 136/82 06/28/18 21:46 O2 Sat by Pulse Oximetry (%) 100 06/28/18 21:46 ED Treatment Course - LABORATORY CBC & Chemistry Diagram: 06/28/18 23:00 06/28/18 23:00 Medical Decision Making - Medical Decision Making 23yo F with PMH of diabetes (non-adherent with metformin) and HELLP syndrome presenting with abdominal pain. -DDX includes but not limited to appendicitis, nephrolithiasis, cholecystitis, pancreatitis, GI bleed -Labs -CT abd/pelvis with IV and oral contrast -Patient declined pain medication 06/29/18 01:19 WBC=13.2, no anemia UA negative for infection, 3+ glucose which corresponds with patient's non- adherence to diabetes medication Call from [facility] regarding receiving incomplete CT scan. Requested CT to re- send imaging. 06/29/18 03:34 Patient currently endorsing 0/[address]: "No bowel obstruction or inflammation. Negative for diverticulitis or colitis. Negative for appendicitis. The right ovary is enlarged. There is a probable 3.3 cm x 2 cm cyst that is causing the ovarian enlargement. However, if there is any suspicion of acute ovarian pathology such as torsion, ultrasound would be helpful. There is some fluid in the pelvic cul-de-sac that may indicate that the cyst is rupturing. IUD noted. Enlarged fatty liver. Normal spleen. No obvious gallbladder abnormalities. Normal pancreas. Normal adrenal glands. Normal kidneys and urinary tracts and urinary bladder. Note made of multiple mildly enlarged mesenteric lymph nodes. This does represent a change from April 22, 2018 and should be followed up. It may represent mesenteric lymphadenitis but should be followed up to make sure the nodes resolve." With the absence of acute pathology, plan to discharge patient and have her follow-up with her primary care physician. Patient discharged 06/29/18 04:57 *DC/Admit/Observation/Transfer Diagnosis at time of Disposition: Abdominal pain - Discharge Dispostion Disposition: HOME Condition at time of disposition: Stable - Referrals - Patient Instructions Printed Discharge Instructions: DI for Abdominal Pain-Adult Additional Instructions: You came into the ED for abdominal pain. CT imaging did not show acute pathology. It did show some inflamed lymph nodes which should be follow up with repeat imaging in 1-2 months. You can take [id number] tylenol or motrin for pain. Follow the instructions on the medication bottle. Follow-up with your primary care physician in 5-7 days to discuss this ED visit , to further evaluate your abdominal pain, assess your high blood sugar, and to arrange for imaging in 1-2 months. Your care is not complete until you do so. Call and make an appointment. Immediate medical attention is required if you have: develop worsening pain, high fevers, persistent nausea, vomiting, or any new or concerning symptoms. If you think you are having an emergency, call for emergency medical services or present to the emergency department right away. - Post Discharge Activity
[2018-06-28 22:52] LABS: URINE APPEARANCE SLCLOUDY; URINE BILIRUBIN NEGATIVE (<2.0 mg/dL); URINE COLOR YELLOW; URINE GLUCOSE (UA) 3+ (NEGATIVE); URINE KETONE NEGATIVE (NEGATIVE); URINE LEUK ESTERASE NEGATIVE (NEGATIVE); URINE NITRITE NEGATIVE (NEGATIVE); URINE PROTEIN NEGATIVE (NEGATIVE); URINE UROBILINOGEN NEGATIVE mg/dL (0.2-1.0)
[2018-06-28 23:07] LABS: BASO % 0.4 % (0-2.0); EOS % 1.1 % (0-4.5); HEMATOCRIT 38.5 % (32.4-45.2); HEMOGLOBIN 13.4 GM/dL (10.7-15.3); LYMPH % 18.5 % (8-40); MCH 29.2 pg (25.7-33.7); MCHC 34.8 g/dl (32.0-36.0); MONO % 5.7 % (3.8-10.2); NEUT % 74.3 % (42.8-82.8); PLATELET COUNT 404 K/MM3 (134-434); RBC 4.58 M/mm3 (3.60-5.2); RDW 13.6 % (11.6-15.6); WHITE BLOOD COUNT 13.2 K/mm3 (4.0-10.0)
[2018-06-28 23:42] LABS: ALBUMIN 3.5 g/dl (3.4-5.0); ALK PHOS 119 U/L (45-117); ANION GAP 5 MMOL/L (8-16); BILIRUBIN,TOTAL 0.4 mg/dL (0.2-1); BLOOD UREA NITROGEN 9 mg/dL (7-18); CALCIUM 9.3 mg/dL (8.5-10.1); CHLORIDE 103 mmol/L (98-107); CO2 29 mmol/L (21-32); CREATININE 0.8 mg/dL (0.55-1.3); GLUCOSE,RANDOM 247 mg/dL (74-106); POTASSIUM 4.8 mmol/L (3.5-5.1); SGOT/AST 19 U/L (15-37); SGPT/ALT 48 U/L (13-61); SODIUM 137 mmol/L (136-145); TOT PROT 7.2 g/dl (6.4-8.2)
--- NOTE | 2018-06-29 00:17 | PDOC ---
Attending Attestation - HPI HPI: 06/29/18 00:17 The patient is a 23 year old female with a past medical history of diabetes and HELLP syndrome here today for evaluation of abdominal pain. Patient reports that her abdominal pain is on her right side and is similar to pain she had in the past due to kidney stones. She reports that her pain was sharp and lasted for 20 minutes. Patient denies headache, lightheadedness. Denies fever, chills. Denies chest pain, shortness of breath. Denies nausea, vomiting, diarrhea. Allergies: NKA PCP: none reported - Medical Decision Making 06/29/18 00:17 Documentation prepared by LINDSAY Benitez, acting as medical billing assistant for Tyron Mooney MD. <Yovanny Thornton - Last Filed: 06/29/18 00:17> - Resident Resident Name: CynthiaGris - ED Attending Attestation I have performed the following: I have examined & evaluated the patient, The case was reviewed & discussed with the resident, I agree w/resident's findings & plan, Exceptions are as noted - Physicial Exam PE: 06/29/18 01:05 Patient is awake and alert, obese, in no distress Normocephalic and atraumatic PERRLA, EOMI No scleral icterus CTA RRR Abdomen soft, non-distended, mild to moderate right-sided abdominal tenderness to deep palpation is noted, no CVA tenderness bilaterally, - Medical Decision Making 06/29/18 01:06 23-year-old female with history of morbid obesity and diabetes presents with atraumatic right-sided abdominal pain and leukocytosis. Will obtain CT that and pelvis with by mouth and IV contrast to rule out appendicitis. Will reassess. <Tyron Mooney - Last Filed: 06/29/18 01:09>
[2018-06-29 05:20] VITALS: BP 118/72; PULSE 95; TEMP 97.7
--- NOTE | 2018-06-29 12:46 | EKG ---
Test Reason : Blood Pressure : / mmHG Vent. Rate : 096 BPM Atrial Rate : 096 BPM P-R Int : 148 ms QRS Dur : 078 ms QT Int : 338 ms P-R-T Axes : 032 041 022 degrees QTc Int : 427 ms NORMAL SINUS RHYTHM NORMAL ECG WHEN COMPARED WITH ECG OF 24-APR-2018 12:38, NO SIGNIFICANT CHANGE WAS FOUND Confirmed by LAUREL ELMORE MD ([id number]) on 06/29/2018 12:45:24 PM Referred By: Confirmed By:LAUREL ELMORE MD
== END 2018-06-29 05:23 | disposition home or self-care (01) ==
LOC: JER 21:35
PROC: 3E0337Z Introduction of Electrolytic and Water Balance Substance into Peripheral Vein, Percutaneous Approach (ICD-10-PCS; principal; 2018-06-28)
DX: R10.30 Lower abdominal pain, unspecified (principal); E11.9 Type 2 diabetes mellitus without complications; Z79.84 Long term (current) use of oral hypoglycemic drugs; Z91.14 Patient's other noncompliance with medication regimen; Z87.09 Personal history of other diseases of the respiratory system
CPT/HCPCS: 36415; 74177-TC; 80053; 81003; 82272; 84702; 85025; 87086; 93005; 93010; 99281-25; 99284-25; J7030